=== PATIENT | male | born 1995 | race Caucasian/White ===

== ENCOUNTER 2016-12-14 17:24 | Emergency (ER) | payer OTHER ==
[~2016-12-14] VITALS: Ht 185.4 cm; Wt 64.8 kg
[2016-12-14 17:36] VITALS: TEMP 37.2; Ht 185.4 cm; Wt 64.8 kg
[2016-12-14] MEDS ORDERED: SODIUM CHLORIDE 0.9% 500ML 500 ML IV STA (17:56)
[2016-12-14] MEDS: METHYLPREDNISOLONE IV 40 MG in SYRINGE 0 ML IV SCH ×2 (18:17→18:21)
[2016-12-14 18:18] LABS: BASO % 0.6 %; BASO ABS # 0.03 K/uL (0-0.2); COMPLETE YES; HEMATOCRIT 46.4 % (42-52); IG% 0.2 %; LYMPH % 21.3 %; LYMPH ABS # 1.12 K/uL (1.2-3.4); MEAN CELL VOLUME 81.5 fL (80-100); MEAN CORPUSCULAR HEMOGLOBIN 29.7 pg (25-34); MEAN CORPUSCULAR HGB CONC 36.4 g/dl (32-36); MEAN PLATELET VOLUME 8.7 fL (7.4-10.4); MONO % 15.6 %; NEUT % 58.3 %; PLATELET COUNT 119 K/uL (130-400); RED BLOOD COUNT 5.69 M/uL (4.7-6.1); WHITE BLOOD COUNT 5.27 K/uL (4.8-10.8)
[2016-12-14 18:42] LABS: BUN/CREATININE RATIO 10.8 (10-20); CALCIUM 9.4 mg/dl (8.5-10.1); CREATININE 0.99 mg/dl (0.60-1.40)
[2016-12-14 18:48] LABS: POTASSIUM 4.1 mmol/L (3.5-5.1)
--- NOTE | 2016-12-14 20:17 | DIAGNOSTIC IMAGING REPORT ---
CT OF THE HEAD WITHOUT CONTRAST CLINICAL HISTORY: Headache. Known tuberous sclerosis. Possible meningitis. COMPARISON STUDY: No previous studies for comparison. CT DOSE: 614.27 mGy.cm TECHNIQUE: Helical axial images of the head were obtained without IV contrast. Automated exposure control was utilized for the study. FINDINGS: No acute intracranial hemorrhage, midline shift or mass effect is present. There are few small subependymoma nodules within the right lateral ventricle. These measure up to 3 mm. One of these is calcified. Ventricular system is otherwise normal. The basilar cisterns are patent. There are no extra-axial collections. Maharaj-white differentiation is maintained. There are no findings to suggest acute dural sinus thrombosis or acute territorial infarct. There is no calvarial fracture. Mastoid air cells are clear. There is moderate mucosal thickening of the ethmoid sinuses. IMPRESSION: 1. No acute intracranial findings. 2. Moderate ethmoid sinus mucosal thickening. 3. A few tiny subependymal nodules within the right lateral ventricle which are consistent with the known history of tuberous sclerosis. Electronically signed by: Ankit Goldman M.D. 12/14/2016 8:15 PM Dictated Date/Time: 12/14/2016 8:12 PM
[2016-12-14 20:33] VITALS: BP 110/59; PULSE 62; O2SAT 98
--- NOTE | 2016-12-15 00:06 | EMERGENCY ROOM VISIT NOTE ---
History Report prepared by Maty: Chris Hercules Under the Supervision of: Dr. Maximo Jackson D.O. First contact with patient: 17:41 Chief Complaint: RASH Stated Complaint: RASH, HEADACHE, POSSIBLE MENINGITIS History of Present Illness The patient is a 21 year old male who presents to the Emergency Room with complaints of a worsening rash beginning one day prior to arrival. He currently rates his discomfort as a 7/10 in severity. The patient associates a headache located at the back of his head and neck pain with today's symptoms. He states his headache and neck pain worsen with bending of his head. The patient notes he was recently sick with a cold consisting of a stuffy nose and sneezing two days ago, but his symptoms have resolved. The patient states he woke up yesterday morning and noticed the rash thirty minutes after waking up on both arms and legs. He notes the rash has been worsening, so he went to a walk-in clinic today, who referred the patient to the ED to rule out meningitis. The patient states the rash is all over his body except for his face and groin. He notes he believes his shots are up to date but is waiting for his mom to confirm. The patient states he has a history of tuberous sclerosis complex, and notes he had Lyme Disease over the summer. He denies being on new medications or using new soaps or detergents. No new exposures, thoughts, cats or any other animals. No recent travel. Patient lives around [place]. The patient notes he has had normal days and denies eating or doing anything abnormal. He notes he is a virgin and denies being sexually active. Pt denies change in vision, fevers, chest pain, shortness of breath, cough, nausea, vomiting, diarrhea, pain with urination, and melena. 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 A total of 10 systems reviewed and were otherwise negative. Past Medical & Surgical Medical Problems: (1) Lyme disease (2) Tuberous sclerosis complex Family History Patient reports no known family medical history. Social History Smoking Status: Never Smoker Marital Status: single Housing Status: lives with roommate Occupation Status: student Current/Historical Medications No Active Prescriptions or Reported Meds Allergies Coded Allergies: No Known Allergies (Unverified , 12/14/16) Physical Exam Vital Signs Date Time Temp Pulse Resp B/P Pulse Ox O2 Delivery O2 Flow Rate FiO2 12/14/16 20:33 62 15 110/59 98 Room Air 12/14/16 18:53 80 18 112/59 98 Room Air 12/14/16 17:36 37.2 90 18 131/75 98 Room Air Physical Exam GENERAL: sitting up in bed, alert, well appearing, well nourished, no distress, non-toxic EYE EXAM: normal conjunctiva, PERRL and EOM's intact OROPHARYNX: no exudate, no erythema, lips, buccal mucosa, and tongue normal and mucous membranes are moist NECK: No nuchal rigidity, no parotid gland swelling. Supple, no nuchal rigidity , no adenopathy, non-tender. LUNGS: Clear to auscultation. Normal chest wall mechanics HEART: no murmurs, S1 normal and S2 normal ABDOMEN: abdomen soft, non-tender, normo-active bowel sounds, no masses, no rebound or guarding. BACK: Back is symmetrical on inspection and there is no deformity, no midline tenderness, no CVA tenderness. : Testicles are nontender. No penile discharge. SKIN: Diffuse erythematous maculopapular rash. Some involvement of bilateral palms, no involvement of soles. No oral involvement. No bruising UPPER EXTREMITIES: upper extremities are grossly normal. LOWER EXTREMITIES: No pitting edema. NEURO EXAM: Normal sensorium, cranial nerves II-XII intact, normal speech, no weakness of arms, no weakness of legs. Negative drift. Finger to nose intact. Medical Decision & Procedures ER Provider Diagnostic Interpretation: CT:Per my review, radiologist interpretation. CT OF THE HEAD WITHOUT CONTRAST CLINICAL HISTORY: Headache. Known tuberous sclerosis. Possible meningitis. COMPARISON STUDY: No previous studies for comparison. CT DOSE: 614.27 mGy.cm TECHNIQUE: Helical axial images of the head were obtained without IV contrast. Automated exposure control was utilized for the study. FINDINGS: No acute intracranial hemorrhage, midline shift or mass effect is present. There are few small subependymoma nodules within the right lateral ventricle. These measure up to 3 mm. One of these is calcified. Ventricular system is otherwise normal. The basilar cisterns are patent. There are no extra-axial collections. Maharaj-white differentiation is maintained. There are no findings to suggest acute dural sinus thrombosis or acute territorial infarct. There is no calvarial fracture. Mastoid air cells are clear. There is moderate mucosal thickening of the ethmoid sinuses. IMPRESSION: 1. No acute intracranial findings. 2. Moderate ethmoid sinus mucosal thickening. 3. A few tiny subependymal nodules within the right lateral ventricle which are consistent with the known history of tuberous sclerosis. Electronically signed by: Ankit Goldman M.D. 12/14/2016 8:15 PM Laboratory Results 12/14/16 18:10 Red Blood Count 5.69, Mean Corpuscular Volume 81.5, Mean Corpuscular Hemoglobin 29.7, Mean Corpuscular Hemoglobin Concent 36.4, Mean Platelet Volume 8.7, Neutrophils (%) (Auto) 58.3, Lymphocytes (%) (Auto) 21.3, Monocytes (%) (Auto) 15.6, Eosinophils (%) (Auto) 4.0, Basophils (%) (Auto) 0.6, Neutrophils # (Auto ) 3.08, Lymphocytes # (Auto) 1.12, Monocytes # (Auto) 0.82, Eosinophils # (Auto ) 0.21, Basophils # (Auto) 0.03 12/14/16 18:10 Test 12/14/16 18:10 12/14/16 19:43 White Blood Count 5.27 K/uL (4.8-10.8) Red Blood Count 5.69 M/uL (4.7-6.1) Hemoglobin 16.9 g/dL (14.0-18.0) Hematocrit 46.4 % (42-52) Mean Corpuscular Volume 81.5 fL (80-100) Mean Corpuscular Hemoglobin 29.7 pg (25-34) Mean Corpuscular Hemoglobin Concent 36.4 g/dl (32-36) Platelet Count 119 K/uL (130-400) Mean Platelet Volume 8.7 fL (7.4-10.4) Neutrophils (%) (Auto) 58.3 % Lymphocytes (%) (Auto) 21.3 % Monocytes (%) (Auto) 15.6 % Eosinophils (%) (Auto) 4.0 % Basophils (%) (Auto) 0.6 % Neutrophils # (Auto) 3.08 K/uL (1.4-6.5) Lymphocytes # (Auto) 1.12 K/uL (1.2-3.4) Monocytes # (Auto) 0.82 K/uL (0.11-0.59) Eosinophils # (Auto) 0.21 K/uL (0-0.5) Basophils # (Auto) 0.03 K/uL (0-0.2) RDW Standard Deviation 37.8 fL (36.4-46.3) RDW Coefficient of Variation 12.6 % (11.5-14.5) Immature Granulocyte % (Auto) 0.2 % Immature Granulocyte # (Auto) 0.01 K/uL (0.00-0.02) Anion Gap 11.0 mmol/L (3-11) Est Creatinine Clear Calc Drug Dose 109.1 ml/min Estimated GFR () 126.5 Estimated GFR (Non- 109.2 BUN/Creatinine Ratio 10.8 (10-20) Calcium Level 9.4 mg/dl (8.5-10.1) Total Bilirubin 1.4 mg/dl (0.2-1) Direct Bilirubin 0.3 mg/dl (0-0.2) Aspartate Amino Transf (AST/SGOT) 23 U/L (15-37) Alanine Aminotransferase (ALT/SGPT) 24 U/L (12-78) Alkaline Phosphatase 98 U/L (45-117) Total Protein 7.9 gm/dl (6.4-8.2) Albumin 4.7 gm/dl (3.4-5.0) Laboratory results per my review. Medications Administered Medications (Trade) Dose Ordered Sig/Dexter Route Start Time Stop Time Status Last Admin Dose Admin Sodium Chloride 500 ml @ 999 mls/hr Q31M STAT IV 12/14/16 17:56 12/14/16 18:26 DC 12/14/16 17:56 999 MLS/HR Methylprednisolone Sodium Succinate/ Syringe (Solu-Medrol IV/ Syringe) 0.64 ml @ 1.5 mls/min NOW IV 12/14/16 18:00 12/14/16 21:27 DC 12/14/16 18:17 1.5 MLS/MIN Methylprednisolone Sodium Succinate (Solu-Medrol IV) 40 mg STK-MED ONCE .ROUTE 12/14/16 18:14 12/14/16 18:16 DC 12/14/16 18:14 40 MG ED Course ED COURSE: Vital signs were reviewed and showed normal vitals. The patients medical record was reviewed The above diagnostic studies were performed and reviewed. ED treatments and interventions as stated above. 1741: The patient was evaluated in room B2. A complete history and physical examination was performed. 1955: Ordered Sodium Chloride 500 ml @ 999 mls/hr IV. 1799: Ordered Methylprednisolone Sodium Succinate 40 mg/Syringe 0.64 ml @ 1.5 mls/min IV. 1827: Reevaluated and updated the patient. I recommended a lumbar puncture, but he is declining at this time. He states he will talk with his parents. 2041: Reevaluate the patient at this time, and he discussed the lumbar puncture with his parents. The patient declines a lumbar puncture and will follow up tomorrow. He states he currently has no headache or neck pain. 2044: Upon reevaluation, the patient is doing well.I discussed my findings with the patient and he understands and agrees with the treatment plan. Based on the patients age, coexisting illnesses, exam and lab findings the decision to treat as an outpatient was made. The patient remained stable while under my care. The patient appeared well at the time of discharge. Medical Decision Etiologies such as contact dermatitis, viral exanthem, urticaria, allergic reaction, Rock-Blake syndrome, toxic epidermal necrolysis, erythema multiforme, cellulitis, scabies, HSV, varicella, zoster, eczema, staph scalded skin syndrome, fungal infection, as well as others were entertained. Patient is a 21-year-old male who was referred in by outside clinic to rule out meningitis. Patient denies any fevers. He notes that the rash has been present since Thursday and worsening. Today he has a little bit of a headache and neck pain which is worsened with movement of his neck. Vitals are stable. He is afebrile. He denies any fevers. On exam he has no signs of meningitis or encephalitis. On reevaluation he had complete resolution of his headache and neck pain. CT head was unremarkable for any acute pathology. He is completely neurologically intact on my exam. I discussed the options of meningitis versus encephalitis versus other etiologies. I recommended LP at this time although I do not believe he truly has meningitis. The patient declined the LP following multiple discussions and he even went on to discuss this with his parents. He felt very comfortable and confident in this decision. He has a clear diffuse macular papular rash. There is no oral involvement. No new medications or exposures. CBC was unremarkable with exception of a mild thrombocytopenia at 120. BMP was unremarkable. T bili and direct bili are slightly elevated at 1.4 and 0.3. No abdominal pain constantly did not pursue this any further. I did consider measles, mumps and rubella. He has no cough, runny nose or itchy eyes. There is no swelling of the parotid glands. He is not sexually active and I did consider syphilis but since this gentleman is not sex active and did not check this any further. I considered EBV but he has no sore throat. Mumps and rubella are pending although unlikely. I question if this is viral. This is clearly not drug related as he has no new medications. No recent travel to suggest recommended RMSF. This is not ITP/TTP/HUS as his CBC is unremarkable. Uncertain at this time of the true etiology however I recommended following up tomorrow with [facility] in any worsening of his symptoms he should return for the LP which he declined following informed refusal of care. Discussed with Pt concerning signs and symptoms to watch out for. Pt was instructed to follow up with their PCP and discussed with the patient their option to return to the ED at anytime for persistent or worsening symptoms. The appropriate anticipatory guidance and out- patient management, including indications for return to the emergency department , were explained at length to the patient and understood. Impression Primary Impression: Maculopapular rash Additional Impression: Headache Scribe Attestation The scribe's documentation has been prepared under my direction and personally reviewed by me in its entirety. I confirm that the note above accurately reflects all work, treatment, procedures, and medical decision making performed by me. Departure Information Dispostion Home / Self-Care Prescriptions No Active Prescriptions or Reported Meds Referrals No Doctor, Assigned (PCP) Forms HOME CARE DOCUMENTATION FORM, IMPORTANT VISIT INFORMATION, WORK / SCHOOL INSTRUCTIONS Patient Instructions My [facility], [facility] Additional Instructions Please follow up with your primary care doctor or if you are a student [facility] with in the next 24 hours. Any worsening of your symptoms, please return to the ED immediately. This includes recurrent severe headache, recurrence of your neck pain, fevers greater than 100.4, involvement of your oral mucosa or eyes with blisters, worsening of the rash, blood in urine , blood in her stool, passing out, or any other concerning signs or symptoms from your standpoint. You must follow up with [facility] services tomorrow for further evaluation. Please also check on your measles, mumps and previous vaccinations to make sure they are all up-to-date. Problem Qualifiers Additional Impression: Headache Headache type: unspecified Headache chronicity pattern: acute headache Intractability: not intractable Qualified Codes: R51 - Headache
[2016-12-18 22:53] LABS: MUMPS VIRUS ANTIBODY IGM <1:20
== END 2016-12-14 20:57 | disposition home or self-care (01) ==
LOC: C.EDB 17:26
DX: R21 Rash and other nonspecific skin eruption (principal); R51 Headache; Z86.19 Personal history of other infectious and parasitic diseases